=== PATIENT | male | born 1975 | race Caucasian/White ===

== ENCOUNTER → 2016-07-29 | Outpatient (CLI) | payer MEDICARE, BC ==
[~2016-07-29] MED LIST: ALDACTONE 100M100 MG PO; ALDACTONE50 MG PO; AMBIEN 5MG TABLE5 MG PO; AMOXICILLIN/CLA1 TA1 PO; ENULOSE10 GM/15 M PO; ENULOSE10 GM/151 PO; GAS-X80 MG PO; INDERAL 20MG20 MG PO; JANUVIA 100MG100 MG PO; JANUVIA25 MG PO; LANTUS SOLOS100 U/ML SC; LANTUS100 U/ML SC; LASIX 20MG TABL20 MG PO; LASIX 40MG TABL40 MG PO; LASIX 80MG TABL80 MG PO; MULTI VITAMINS1 TAB PO; MULTIPLE VITAMI1 TA5 PO; NOVOLOG FLEX100 U/ML SQ; PAMELOR50 MG PO; PHAZYME250 MG PO; PRILOSEC10 MG PO; PRINIVIL2.5 MG PO; PROBIOTIC-MAJOR PO; PROTONIX 40MG T40 MG PO; QUESTRAN LITE 41 PKT; ROXICODONE 55 MG/TAB PO; VITAMIN A10k PO; VITAMIN D 50,1.25 MG PO; VITAMIN D1000 IU PO; WELCHOL 625MG625 MG PO; XIFAXAN550 MG PO
== END ==
LOC: COL.RAD 10:29
DX: K74.60 Unspecified cirrhosis of liver (principal); R16.2 Hepatomegaly with splenomegaly, not elsewhere classified; Z94.4 Liver transplant status; D69.6 Thrombocytopenia, unspecified; Z90.49 Acquired absence of other specified parts of digestive tract

== ENCOUNTER → 2017-09-30 | Outpatient (CLI) | payer MEDICARE, BC | LOC: COL.RAD 07:45 | DX: R16.1 Splenomegaly, not elsewhere classified (principal); Z94.4 Liver transplant status; Z85.05 Personal history of malignant neoplasm of liver | CPT/HCPCS: Q9967 ==

== ENCOUNTER → 2019-07-20 | Outpatient (CLI) | payer BC, MEDICARE | LOC: COL.RAD 07:14 | DX: K76.0 Fatty (change of) liver, not elsewhere classified (principal); R79.89 Other specified abnormal findings of blood chemistry; R16.1 Splenomegaly, not elsewhere classified; Z94.4 Liver transplant status ==

== ENCOUNTER → 2020-07-24 | Outpatient (CLI) | payer BC | LOC: COL.RAD 07:15 | DX: K75.81 Nonalcoholic steatohepatitis (NASH) (principal); Z94.4 Liver transplant status; Z90.49 Acquired absence of other specified parts of digestive tract ==

== ENCOUNTER → 2021-03-15 | Outpatient (CLI) | payer BC | LOC: COL.VAS 07:24 | DX: I51.7 Cardiomegaly (principal) ==

== ENCOUNTER → 2021-04-08 | Outpatient (CLI) | payer BC ==
[2021-04-08 07:15] LABS: ARTERIAL BLD GAS O2 SATURATION 95.1 % (92-100); ARTERIAL BLD GAS TCO2 CT 27.3; ARTERIAL BLOOD GAS BASE EXCESS -0.2 (-2-2); ARTERIAL BLOOD GAS HCO3 25.9 meq/L (22-26); ARTERIAL BLOOD GAS PCO2 47.4 mmHg (35-45); ARTERIAL BLOOD GAS PO2 77.2 mmHg (80-100); ARTERIAL BLOOD GAS pH 7.36 (7.35-7.45)
== END ==
LOC: COL.PUL 06:57
PROVIDERS: Internal Medicine Pulmonary Disease
DX: R06.02 Shortness of breath (principal)

== ENCOUNTER → 2021-12-11 | Outpatient (CLI) | payer BC | LOC: COL.RAD 09:29 | DX: K76.0 Fatty (change of) liver, not elsewhere classified (principal); R16.1 Splenomegaly, not elsewhere classified ==

== ENCOUNTER 2022-02-13 16:53 | Emergency (ER) | payer BC ==
[~2022-02-13] VITALS: Ht 177.8 cm; Wt 142.3 kg
[2022-02-13 17:13] VITALS: TEMP 98.6
[2022-02-13 17:44] LABS: BASO % 0.3 % (0.0-2.0); EOS # 0.2 K/mm3 (0.0-0.7); EOS % 2.1 % (0.0-4.0); GRAN # 6.9 K/mm3 (1.4-6.5); GRAN % 73.1 % (42.2-75.2); HEMATOCRIT 40.4 % (42.0-52.0); HEMOGLOBIN 14.2 g/dl (13.5-18.0); LYMPH # 1.8 K/mm3 (1.2-3.4); LYMPH % 19.1 % (20.0-51.0); MEAN CELL VOLUME 88 fl (80.0-100.0); MEAN CORPUSCULAR HEMOGLOBIN 31 pg (27-31); MEAN CORPUSCULAR HGB CONC 35 g/dl (33.0-37.0); MEAN PLATELET VOLUME 9.1 fl (7.4-10.4); MONO # 0.5 K/mm3 (0.1-0.6); PLATELET COUNT 195 K/mm3 (130-400); RED BLOOD COUNT 4.58 M/mm3 (4.20-5.60)
[2022-02-13 17:54] LABS: INR 1.1 (0.8-3.0); PROTHROMBIN TIME 12.1 SECONDS (9.7-12.8)
[2022-02-13 18:01] LABS: ALBUMIN 3.9 gm/dL (3.5-5.0); BILIRUBIN,TOTAL 1.3 mg/dL (0.2-1.2); CREATININE, serum 2.29 mg/dL (0.72-1.25); POTASSIUM 4.7 mmol/L (3.5-4.5); TOTAL PROTEIN 7.5 gm/dL (6.2-8.1)
[2022-02-13 21:48] VITALS: BP 122/77; PULSE 101
== END 2022-02-13 21:50 | disposition short-term general hospital (02) ==
LOC: COL.ER 16:53
PROVIDERS: Family Medicine
DX: K56.609 Unspecified intestinal obstruction, unspecified as to partial versus complete obstruction (principal); K63.1 Perforation of intestine (nontraumatic); Z87.891 Personal history of nicotine dependence; Z28.310 Unvaccinated for COVID-19
CPT/HCPCS: J2543; J7120